=== PATIENT | male | born 1945 | race Hispanic/Latino ===

== ENCOUNTER 2016-08-31 06:56 | Day surgery (SDC) | payer MEDICARE ==
[2016-08-24 09:07] VITALS: BMI 27.3
[2016-08-31 07:25] LABS: ADD MANUAL DIFF? NO
[2016-08-31 07:28] LABS: BASO # 0.01 K/mm3 (0.0-2.0); BASO % 0.2 % (0.0-3.0); EOS # 0.1 (0.0-0.7); EOS % 1.2 % (1.5-5.0); GRAN # 2.49 (1.4-6.5); GRAN % 43.8 % (50.0-68.0); HEMATOCRIT 35.6 % (42.0-52.0); LYMPH # 2.5 (1.2-3.4); LYMPH % 44.3 % (22.0-35.0); MEAN CELL VOLUME 96.5 fL (80.0-105.0); MEAN CORPUSCULAR HEMOGLOBIN 33.1 pg (25.0-35.0); MEAN CORPUSCULAR HGB CONC 34.3 g/dl (31.0-37.0); MEAN PLATELET VOLUME 9.9 fl (7.0-11.0); MONO # 0.6 (0.1-0.6); MONO % 10.5 % (1.0-6.0); PLATELET COUNT 132 10^3/uL (120.0-450.0); RED CELL DISTRIBUTION WIDTH 13.7 % (11.5-14.5); WHITE BLOOD COUNT 5.7 10^3/ul (4.5-11.0)
[2016-08-31 07:36] VITALS: O2SAT 98
[2016-08-31 07:40] LABS: INR 1.17 (0.93-1.08); PARTIAL THROMBOPLASTIN TIME 23.3 Seconds (23.7-30.8)
[2016-08-31 07:58] LABS: BLOOD UREA NITROGEN 17 mg/dL (7-21); CALCIUM 8.9 mg/dL (8.4-10.5); CARBON DIOXIDE 26 mmol/L (21-33); CHLORIDE 103 mmol/L (95-110); CHOLESTEROL 131 mg/dL (130-200); GFR AFRICAN-AMERICAN > 60; GLUCOSE,RANDOM 103 mg/dL (70-110); POTASSIUM 3.6 mmol/L (3.6-5.0); SODIUM 140 mmol/L (132-148)
--- NOTE | 2016-08-31 08:06 | HP ---
REASON FOR ADMISSION: Left heart catheterization, possible angioplasty. BRIEF CLINICAL HISTORY: This is a 71-year-old male, obese, with past medical history significant for nonobstructive coronary artery disease, status post cardiac catheterization in 1999, hyperlipidemia, hypertension, admitted for left heart catheterization, possible angioplasty because of abnormal stre ss test. PAST MEDICAL HISTORY: Significant for cardiac catheterization in 1999, moderate disease in LAD 60% a nd circ 40% at that time; history of hypertension; hyperlipidemia; history of arthritis; nonobstructi ve coronary artery disease in the past. RECENT CARDIAC WORKUP FOLLOWS: The patient underwent a stress test on 07/29/2016 that showed prob ably abnormal SPECT myocardial perfusion study, partially reversible apical inferior defect suspiciou s for ischemia, ejection fraction 60%. When compared from the previous study dated 08/16/2013, the d efect appears more prominent in the current study as compared to before. The patient had also echoca rdiography done in Dr. Bonilla's office, 07/29/2016 that shows no PE, no vegetation, no thrombus, no M DESIGN DRAFTER, ejection fraction 55% to 60%, [id number] aortic regurgitation, [id number] mitral regurgitat ion, mild tricuspid regurgitation, trace pulmonary insufficiency. RV systolic pressure is 26. CURRENT MEDICATIONS: The patient is taking Remicade, , Crestor, omeprazole, metoprolol tartrate , methotrexate, losartan, folic acid, fenofibrate, cyanocobalamin, vitamin D3, aspirin and allopurino l. REVIEW OF SYSTEMS: As per HPI. ALLERGIES: No known drug allergies. PHYSICAL EXAMINATION: VITAL SIGNS: Temperature afebrile, heart rate is 66, blood pressure 120/68. Height of the patient 5 feet 8 inches, weight of the patient 180 pounds. HEENT: PERRLA. Extraocular muscles intact. NECK: Supple. No carotid bruits. No thyromegaly. CHEST: Clear to auscultation. HEART: S1, S2 regular. ABDOMEN: Soft. EXTREMITIES: Clubbing and cyanosis negative. BLOOD WORKUP: Pending. IMPRESSION: Abnormal stress test, inferior and apical defect suspicious for ischemia, ejection fract ion of 60% compared from the previous stress test 08/16/2013, this appears prominent on recent stress test dated 07/29/2016. The patient's echocardiography 07/29/2016 shows ejection fraction 55% to 60% , trace to mild aortic regurgitation, trace to mild mitral regurgitation, mild tricuspid regurgitatio n, ejection 55% to 60%. Diabetes, hypertension, hyperlipidemia. RECOMMENDATION: We will give 300 of Plavix, aspirin 325 mg, cardiac catheterization. Further recomm endation after cardiac catheterization. Risks, benefits, alternatives discussed with the patient. T he patient agreed. We will proceed for cardiac catheterization. Bay Kelley MD cc: [id number] TT: 08/29/2016 06:32:12 de 08/29/2016 06:44:55
[2016-08-31] MEDS ORDERED: Lidocaine 2% Inj (20ml) ONE (08:52)
[2016-08-31] MEDS ORDERED: Midazolam 2 MG/2 ML VIAL ONE (08:53)
[2016-08-31] MEDS ORDERED: Iodixanol 320 MG/ML 200 ML BOTTLE IV ONE (08:53)
[2016-08-31] MEDS ORDERED: Nitroglycerin 50mg in D5W 250 ML IV ONE (09:11)
[2016-08-31] MEDS ORDERED: Eptifibatide 20 mg/10mL Inj IVP ONE (09:40)
[2016-08-31] MEDS ORDERED: Sodium Chloride 0.9% 1,000 ML IV SCH (10:30)
[2016-08-31 12:24] VITALS: TEMP 98.3
--- NOTE | 2016-08-31 12:39 | CARD ---
APPROVED REPORT EKG Measurement Heart [id number] <Conclusion> Marked sinus bradycardia with 1st degree AV block Abnormal ECG
[2016-08-31 12:42] LABS: ADD MANUAL DIFF? NO
[2016-08-31 12:47] LABS: BASO # 0.01 K/mm3 (0.0-2.0); BASO % 0.2 % (0.0-3.0); EOS # 0.1 (0.0-0.7); EOS % 1.2 % (1.5-5.0); GRAN % 45.4 % (50.0-68.0); LYMPH # 2.6 (1.2-3.4); LYMPH % 44.8 % (22.0-35.0); MEAN CELL VOLUME 96.2 fL (80.0-105.0); MEAN CORPUSCULAR HEMOGLOBIN 33.2 pg (25.0-35.0); MEAN CORPUSCULAR HGB CONC 34.6 g/dl (31.0-37.0); MEAN PLATELET VOLUME 10.2 fl (7.0-11.0); MONO # 0.5 (0.1-0.6); MONO % 8.4 % (1.0-6.0); PLATELET COUNT 122 10^3/uL (120.0-450.0); RED CELL DISTRIBUTION WIDTH 13.8 % (11.5-14.5); WHITE BLOOD COUNT 5.7 10^3/ul (4.5-11.0)
[2016-08-31 13:34] LABS: BLOOD UREA NITROGEN 16 mg/dL (7-21); CALCIUM 8.6 mg/dL (8.4-10.5); CARBON DIOXIDE 27 mmol/L (21-33); CHLORIDE 103 mmol/L (98-107); GFR AFRICAN-AMERICAN > 60; GLUCOSE,RANDOM 78 mg/dL (70-110); POTASSIUM 3.7 mmol/L (3.6-5.0); SODIUM 140 mmol/L (132-148)
[2016-08-31 14:13] VITALS: RESP 18
[2016-08-31 15:47] VITALS: PULSE 63
[2016-08-31] MEDS ORDERED: Bacitracin 500 Units/gm Oint Foilpak UD ONE (17:35)
--- NOTE | 2016-08-31 17:36 | CARD ---
APPROVED REPORT Procedure(s) performed: Left Heart Catheterization PTCA with Stenting of Mid Cx with HAJA HISTORY The patient is a 71 year-old male with a history of : hypertension , dyslipidemia . INDICATION The indication(s) include : positive stress test. CASE TECHNIQUE The patient was brought electively to the Cardiac Catheterization Laboratory in a fasting state and was prepped and draped in a sterile manner. The left wrist was infiltrated with 2% Lidocaine subcutaneous anesthesia. A 6 Fr Glidesheath (Radial) sheath was inserted into the left radial vein without difficulty. Coronary angiography was performed using coronary diagnostic catheters. The left coronary system was accessed and visualized with a Diagnostic ,6 Fr JL 4 catheter. The right coronary system was accessed and visualized with a Diagnostic ,6 Fr JR 4 catheter. The left ventricle was accessed and visualized with a Pig tail catheter. Left ventricular/Aortic Valve gradient assessed on pullback. Left ventriculogram was performed in ZALDIVAR projection. Closure device was deployed with a Fr TR Band without any complications. The patient tolerated the procedure well and there were no complications associated with the procedure. Vessel Analysis The patient's coronary anatomy is co-dominant. The left main coronary artery is a large size vessel with diffuse calcification noted throughout this vessel and without significant stenosis. There is a 30% stenosis in the proximal segment. The left main bifurcates to the left anterior descending and circumflex. The left anterior descending artery is a large size vessel with diffuse calcification noted throughout this vessel and without significant stenosis. There is a 30-40% stenosis in the proximal segment. The first diagonal branch is a small size vessel with diffuse calcification noted throughout this vessel and without significant stenosis. The second diagonal branch is a small size vessel with diffuse calcification noted throughout this vessel and without significant stenosis. The circumflex artery is a large size vessel with diffuse calcification noted throughout this vessel and with significant stenosis. There is a 95% stenosis in the mid segment. The first obtuse marginal branch is a medium size vessel with diffuse calcification noted throughout this vessel and without significant stenosis. The second obtuse marginal branch is a medium size vessel with diffuse calcification noted throughout this vessel and without significant stenosis. The left posterior descending artery is a medium size vessel with diffuse calcification noted throughout this vessel and without significant stenosis. The right coronary artery is a medium size vessel with diffuse calcification noted throughout this vessel and without significant stenosis. The right posterior descending artery is a medium size vessel with diffuse calcification noted throughout this vessel and without significant stenosis. Left Ventricle The left ventricle is Borderline in size with normal contractility. There was no cardiomyopathy. The left ventricular ejection fraction is estimated to be 55-60%. The left ventricular end diastolic pressure is 15-18 mmHg. There was no gradient across the aortic valve upon pullback. PCI Technique Lesion Anticoagulation was achieved with Heparin. Percutaneous coronary intervention was performed on the mid circumflex artery segment. The lesion stenosis prior to intervention was 95% with PATTI 2 flow. A 6 Fr JL 4 Guide Catheter was used to engage the ostium. BALLOON DILATION A Balloon catheter 2.5 x 10 mm Sprinter RX was inserted and inflated up to 10.00atm for 8seconds. STENT DEPLOYMENT A drug-eluting stent 3.5 x 15 mm Resolute HAJA was inserted and inflated up to 0.00atm for 30seconds. POST STENT DEPLOYMENT BALLOON DILATION A Balloon catheter 3.25 x 9 mm Sprinter NC was inserted and inflated up to 18.00atm for 20seconds. Final angiography reveals 0 % stenosis with PATTI 3 flow. Conclusion Single Vesdsel Critical Diz involving Mid CX-95% stenosis. Mild to Moderate Diz in proximal Left main and Mid LAD Successful PTCA with Haja in Mid Cx. Recommendations Cardiac Rehabilitation ReferralDaily ASA with Plavix for at least one year Aggressive Medical TherapyCardiac Risk Reduction Program Weight Loss Reduction Program CC; Drs. Martin / Irene.
[2016-08-31 19:09] VITALS: BP 140/80
== END 2016-08-31 18:00 | disposition home or self-care (01) ==
LOC: CATH 06:56 → 2RSO 10:48 → CATH 18:00
PROVIDERS: ATTEND Internal Medicine Cardiovascular Disease
DX: I25.10 Atherosclerotic heart disease of native coronary artery without angina pectoris (principal); E78.5 Hyperlipidemia, unspecified; I10 Essential (primary) hypertension; E66.9 Obesity, unspecified; I08.3 Combined rheumatic disorders of mitral, aortic and tricuspid valves; Z79.82 Long term (current) use of aspirin
CPT/HCPCS: 36415; 80048; 80061; 85025; 85610; 85730; 86850; 86900; 93005; 93458; 99152; 99153; C1725 ×2; C1769 ×2; C1874; C1887 ×3; C9600; J1327; J1644 ×2; J2250; J3010; J7040 ×2

== ENCOUNTER 2018-06-20 11:59 | Outpatient (CLI) | payer MEDICARE | END 2018-06-20 12:00 | disposition home or self-care (01) | LOC: OPLAB 11:59 ==

== ENCOUNTER 2018-06-21 13:26 | Outpatient (CLI) | payer MEDICARE | END 2018-06-21 13:27 | disposition home or self-care (01) | LOC: LAB 13:26 ==

== ENCOUNTER 2018-08-16 13:03 | Outpatient (CLI) | payer MEDICARE | END 2018-08-16 13:04 | disposition home or self-care (01) | LOC: OPLAB 13:03 ==

== ENCOUNTER 2018-10-10 13:08 | Outpatient (CLI) | payer MEDICARE | END 2018-10-10 13:09 | disposition home or self-care (01) | LOC: OPLAB 13:08 ==

== ENCOUNTER 2018-10-11 12:42 | Outpatient (CLI) | payer MEDICARE | END 2018-10-11 12:43 | disposition home or self-care (01) | LOC: OPLAB 12:42 ==